=== PATIENT | female | born 1990 | race Caucasian/White ===

== ENCOUNTER 2016-04-02 00:30 | Outpatient (CLI) | payer OTHER ==
[2016-04-02 01:00] VITALS: BMI 26.2
== END 2016-04-02 01:25 | disposition home or self-care (01) ==
LOC: FBCOUT 00:30 → FBC 00:30 → FBCOUT 01:25
PROVIDERS: ATTEND Advanced Practice Midwife
DX: O47.9 False labor, unspecified (principal); Z3A.00 Weeks of gestation of pregnancy not specified
CPT/HCPCS: 59025; G0463 ×2

== ENCOUNTER 2016-04-09 09:53 | Inpatient (IN) | payer OTHER ==
[2016-04-09 10:21] VITALS: BMI 24.7
[2016-04-09] MEDS ORDERED: OXYTOCIN IN LR 500 ML IV ONE (11:54)
[2016-04-09] MEDS ORDERED: LIDOCAINE 1% (PRES FREE) 30 ML VIAL ONE (12:31)
[2016-04-09] MEDS ORDERED: OXYTOCIN 10 UNITS/ML VIAL ONE (12:31)
[2016-04-09] MEDS ORDERED: MINERAL OIL 25 ML BOT ONE (12:31)
[2016-04-09] MEDS ORDERED: OXYTOCIN IN LR 0 ML IV ONE (12:32)
[2016-04-09] MEDS ORDERED: LIDOCAINE Viscous 2% 15 ML UDCUP ONE (12:32)
[2016-04-09] MEDS ORDERED: LACTATED RINGERS 1,000 ML ONE (12:32)
[2016-04-09] MEDS ORDERED: IV START KIT ONE (12:32)
[2016-04-09] MEDS ORDERED: PUMP TUBING ONE (12:32)
[2016-04-09 13:12] LABS: HEMATOCRIT 38.3 % (37.0-47.0); HEMOGLOBIN 13.1 gm/l (12.0-16.0); MEAN CELL VOLUME 86.8 fl (81.0-99.0); MEAN CORPUSCULAR HEMOGLOBIN 29.7 pg (27.0-31.0); MEAN CORPUSCULAR HGB CONC 34.2 g/dl (33.0-37.0); RED CELL DISTRIBUTION WIDTH 13.9 % (11.5-14.5)
[2016-04-09] MEDS: MISOPROSTOL 25 MCG TABLET SL SCH ×3 (13:16→22:16)
--- NOTE | 2016-04-09 14:37 | PCMAN ---
OB Admission Note - History : 4 Term: 1 : 0 Abortions (S&E): 2 Livin EDC:: 04/11/16 Gestational Age (weeks): 39 Days (#/7): 5 Admit Cervical Dilation:: 2 Admit Cervical Effacement (%):: 50 Admit Station:: -1 Admit Presentaton:: vertex Membrane Status: Ruptured Rupture (Date): 04/09/16 Rupture (Time): 04:00 Membranes Comment:: clear fluid Contractions: No Heart Rate:: 130 (moderate variability/accels present/decels absent) Status:: FHR Cat 1 EFW:: 7.5-8# Summary of Course:: Onset of care at 7 weeks from [facility] in [place] x 5 visits. NNAMDI based on 7 week U/ S. Normal Anatomy U/S. complicated by CT infection in first trimester ; treated with negative YESICA in the third trimester. Called to report gush of clear fluid at 0400. Planned expectant management of labor x 12 hours. Came to [facility] at 1000 due to lack of movement. Reactive NST upon admission. - Review of Systems Mild RAMOS. No visual disturbances, epigastric pain, nausea or swelling. - Physical Exam General: Afebrile, No Acute Distress Psych/Mental Status: Mood/Affect Appropriate, Judgment/Insight Intact, Bonding Well Neurological: Grossly Intact, Alert, Oriented x 4 Lungs: Clear to Auscultation Bilaterally Cardiovascular: Regular Rate and Rhythm Genitourinary: Normal Female Genitalia, No Edema Extremities: Full ROM, No Edema Skin: Normal Color, Warm, Dry - Problems (1) SROM (spontaneous rupture of membranes) Status: Acute Assessment/Plan: Assessment: 25 year old at 39w5d PROM; not in labor FHR Cat 1 Bishops score 5 GBS neg Plan: Discussed expectant management versus cervical ripening. Patient would like to proceed with cervical ripening. Will start with 25 mcg misoprostol SL. Patient desires epidural anesthesia once in active labor.
[2016-04-09] MEDS: ACETAMINOPHEN 325 MG TABLET PO PRN ×2 (14:47→20:28)
[2016-04-09] MEDS ORDERED: ONDANSETRON 4 MG/2ML 2 ML VIAL IV ONE (20:16)
[2016-04-09] MEDS ORDERED: BUTORPHANOL TARTRATE 1 MG/ML VIAL IV ONE (20:57)
[2016-04-09] MEDS ORDERED: FENTANYL/ROPIVACAINE EPIDURAL 250 ML EP ONE (22:12)
[2016-04-09] MEDS ORDERED: EPIDURAL PUMP SET ONE ×2 (22:12→23:06)
[2016-04-09] MEDS: LACTATED RINGERS 1,000 ML IV SCH ×2 (22:15→23:10)
[2016-04-09] MEDS ORDERED: BUPIVACAINE 0.25% (PRES FREE) 30 ML VIAL ONE (22:44)
[2016-04-09] MEDS ORDERED: EPIDURAL PROCEDURE TRAY ONE (22:44)
--- NOTE | 2016-04-09 23:36 | PDOC36 ---
Provider Note Subject: Labor progress note S: Carol Ann has been working hard through her contractions, which she reports feeling in her back, front and down her legs. She tried laboring in the tub for a while, which offered mild pain relief. She got relief for 1hr with IV stadol, but reports that the pain has increased and is now requesting an epidural for pain management. O: SVE: 2cm/70%/-2, posterior (at 2000). ROT per off-going CNM. Fetus: Baseline 110, moderate variability, accels present, decels absent Ctx: q2-4 minutes, palpate moderate VS: 122/91 BP (taken during ctx), 35.9C temp, 92 HR A: 25 year old at 39w5d Fetus Category 1 PROM x19.5hrs-afebrile, vital signs stable, fluid clear and non-odorous Early labor-adequate contraction pattern currently following 2 doses of miso for cervical ripening GBS neg P: Discussed alternatives to getting an early epidural, as well as risk that labor could slow down. Pt reports inability to cope with contractions and desires epidural. Epidural initiated. Fluid bolus given. [employer] notified. cEFM per protocol Monitor contraction pattern and consider augmentation PRN if contractions space Once epidural is effective, frequent position changes to encourage rotation and labor progress Encourage rest/sleep Minimize cervical exams Reassess in 2-3hrs or PRN.
[2016-04-10] MEDS ORDERED: ACETAMINOPHEN 325 MG TABLET PO PRN (00:58)
[2016-04-10] MEDS ORDERED: DOCUSATE SODIUM 100 MG CAPSULE PO PRN (00:58)
[2016-04-10] MEDS ORDERED: CALCIUM CARBONATE 500 MG TAB.CHEW PO PRN (00:58)
[2016-04-10] MEDS ORDERED: BENZOCAINE/MENTHOL 60 APPLIC/BOT TP PRN (00:58)
[2016-04-10] MEDS ORDERED: LANOLIN 50 APPLIC/7G TUBE TP PRN (00:58)
--- NOTE | 2016-04-10 01:08 | PCMDEL ---
Delivery Note - Labor 1st stage (hr/min):: 1h54m 2nd stage (hr/min):: 34m 3rd stage (hr/min):: 8m Total (hr/min):: 2h36m Pushed (hr/min):: 20m - Delivery Delivery (Date): 04/10/16 Delivery (Time): 00:28 Gender: Male Presentation: Cephalic Position: OA Umbilical Cord: 3 Vessel Delayed Cord Clamping:: > 3 min 1 Minute Total: 9 5 Minute Total: 9 Placenta:: Shultze, intact EBL:: 100 Perineum:: intact, bilateral labial abrasions (superficial and hemostatic-not repaired) Anesthesia/Meds:: IV stadol, epidural Length ROM:: 20h30m Comments:: Pt achieved an of a viable male infant delivered over an intact perineum. FHTs Category 2 throughout 2nd stage due to occasional decelerations, but always with good recovery. Baby was passed to mother and placed on maternal abdomen. Delayed cord clamping x5 minutes, cut by FOB. Placenta delivered Shultze and intact, multiple small calcifications noted throughout. Fundus firm immediately at umbilicus. Vagina and perineum inspected and bilateral superficial labial abrasions were noted to be hemostatic, so they were not repaired. Otherwise intact. Fundus checked again and 1 moderate-sized clot expressed along with small amount of urine. Fundus firm at 1FB below umbilicus. [id number]. Baby to breast within 30 minutes. Mom and baby [id number] and bonding well.
[2016-04-10] MEDS ORDERED: NALOXONE HCL 0.4 MG/ML VIAL IV PRN (01:56)
[2016-04-10] MEDS ORDERED: EPHEDRINE SULFATE 50 MG/ML 1ML VIAL IV PRN (01:56)
[2016-04-10] MEDS ORDERED: SODIUM CHLORIDE 0.9% 500 ML IV PRN (01:56)
[2016-04-10] MEDS ORDERED: LACTATED RINGERS 500 ML IV PRN (01:56)
[2016-04-10] MEDS ORDERED: NALBUPHINE HCL 20 MG/ML AMP IV PRN (01:56)
[2016-04-10] MEDS ORDERED: DIPHENHYDRAMINE HCL 50 MG/1 ML VIAL IV PRN (01:56)
[2016-04-10] MEDS ORDERED: METOCLOPRAMIDE HCL 5 MG/ML 2ML VIAL IV PRN (01:56)
[2016-04-10] MEDS ORDERED: ONDANSETRON 4 MG/2ML 2 ML VIAL IV PRN (01:56)
[2016-04-10] MEDS: FENTANYL/ROPIVACAINE EPIDURAL 250 ML EP SCH ×2 (02:00→02:06)
[2016-04-10] MEDS: IBUPROFEN 800 MG TABLET PO SCH ×4 (02:40→23:21)
[2016-04-10] MEDS: LACTATED RINGERS 1,000 ML IV SCH ×2 (03:58→10:28)
[2016-04-10] MEDS: HYDROCODONE/ACETAMINOPHEN 5/325MG TABLET PO PRN ×2 (09:49→21:32)
[2016-04-10] MEDS: MISOPROSTOL 25 MCG TABLET SL SCH ×2 (10:29→10:30)
[2016-04-11] MEDS: IBUPROFEN 800 MG TABLET PO SCH (05:33)
[2016-04-11 06:54] LABS: HEMATOCRIT 40.8 % (37.0-47.0); HEMOGLOBIN 13.4 gm/l (12.0-16.0)
[2016-04-11 07:56] VITALS: BP 102/62
--- NOTE | 2016-04-11 10:02 | PDOC39B ---
Hospital Course: ADMIT DATE: 04/09/16 DISCHARGE DATE: 04/11/16 ADMISSION DIAGNOSES: Active Labor PROCEDURES: HISTORY OF PRESENT ILLNESS: 25 year old G4 T1 L1 at 39 weeks 6 days presenting with active labor. HOSPITAL COURSE: The patient is ready to go home. Breast feeding is going well. She has a f/u next Saturday with . Will see the NB provider on Saturday. She also wants a breast pump order to go home with. Eating, drinking and ambulating. Mild cramping noted and taking Ibuprofen. Declines an RX for this. By day of discharge the patient is stable, well and ready to go home. - Physical Exam Vital Signs: Temp Pulse Resp BP Pulse Ox 97.6 F 76 16 102/62 04/11/16 07:52 04/11/16 07:52 04/11/16 07:52 04/11/16 07:52 General: Afebrile Psych/Mental Status: Mood/Affect Appropriate Neurological: Grossly Intact HEENT: Atraumatic Lungs: Clear to Auscultation Bilaterally Cardiovascular: Regular Rate and Rhythm Breast: Soft, Skin intact Fundus: Firm Genitourinary: Normal Female Genitalia Lochia: Light Rectal Exam: Deferred Extremities: Full ROM Skin: Normal Color, Warm, Dry, Intact - Discharge Diagnosis (1) normal course Status: Acute Assessment/Plan: A/ Day 1 s/p vaginal Breast feeding Normal PP course P/ D/C Home with baby F/U in 2 weeks with CNM F/U Saturday with NB provider - Discharge Plan Condition: Good Disposition: Home Additional Instructions: Midwifery 'After the ' handout given to patient. Follow-Up: Bridget Coughlin CNM [Certified Nurse [employer]] - In 2 weeks
== END 2016-04-11 11:15 | disposition home or self-care (01) | DRG 775 ==
LOC: FBCOUT 09:53 → FBC 09:56 → FBCOUT 11:51 → FBC 11:52
PROVIDERS: ADMIT Licensed Practical Nurse; ATTEND Licensed Practical Nurse
PROC: 3E0P7GC Introduction of Other Therapeutic Substance into Female Reproductive, Via Natural or Artificial Opening (ICD-10-PCS; 2016-04-09)
PROC: 10E0XZZ Delivery of Products of Conception, External Approach (ICD-10-PCS; principal; 2016-04-11)
DX: O70.0 First degree perineal laceration during delivery (principal); Z3A.39 39 weeks gestation of pregnancy; Z37.0 Single live birth; O76 Abnormality in fetal heart rate and rhythm complicating labor and delivery

== ENCOUNTER 2016-04-16 10:44 | Outpatient (CLI) | payer OTHER | END 2016-04-16 10:45 | disposition home or self-care (01) | LOC: BABIESSH 10:44 | PROVIDERS: ATTEND Advanced Practice Midwife | DX: Z39.1 Encounter for care and examination of lactating mother (principal) ==

== ENCOUNTER 2016-05-14 21:49 | Emergency (ER) | payer OTHER ==
[2016-05-14 23:15] LABS: HCG,QUALITATIVE URINE NEGATIVE
[2016-05-14 23:16] LABS: SPECIFIC GRAVITY 1.025 (1.001-1.030); URINE BILIRUBIN NEGATIVE (NEGATIVE); URINE BLOOD NEGATIVE (NEGATIVE); URINE GLUCOSE (UA) NEGATIVE (NEGATIVE); URINE LEUKOCYTE ESTERASE NEGATIVE (NEGATIVE); URINE NITRITE NEGATIVE (NEGATIVE); URINE PROTEIN NEGATIVE (NEGATIVE); URINE UROBILINOGEN NORMAL (0-1 mg/dl)
[2016-05-14 23:18] LABS: URINE APPEARANCE CLEAR; URINE COLOR YELLOW
[2016-05-15 00:01] LABS: ABSOLUTE NEUTROPHIL COUNT 5.2 K/mm3 (1.8-7.7); BASO % 0.2 % (0.2-1.0); EOS # 0.4 (0.0-0.5); EOS % 3.9 % (0.9-2.9); HEMATOCRIT 39.7 % (37.0-47.0); HEMOGLOBIN 13.1 gm/l (12.0-16.0); IMM NEUT% 0.2 % (0-1); LYMPH # 2.8 (1.0-4.8); LYMPH % 31.4 % (15-45); MEAN CELL VOLUME 87.4 fl (81.0-99.0); MEAN CORPUSCULAR HEMOGLOBIN 28.9 pg (27.0-31.0); MONO # 0.6 (0.0-0.8); MONO % 6.9 % (4-12); NEUT % 57.4 % (43-75); PLATELET COUNT 147 K/mm3 (130-400); RED CELL DISTRIBUTION WIDTH 12.8 % (11.5-14.5)
[2016-05-15 00:14] LABS: ALB/GLOB RATIO 1.5 (>1.0); ALBUMIN 3.9 gm/dL (3.5-5.7); CALCIUM 9.4 mg/dL (8.6-10.3)
--- NOTE | 2016-05-15 08:18 | US ---
PELVIC ULTRASOUND HISTORY: Suprapubic cramping, . Transabdominal and transvaginal pelvic sonography performed. TRANSABDOMINAL IMAGING UTERINE DIMENSIONS: 10.6 x 7.1 x 5.2 cm. BLADDER: No abnormal filling defect. TRANSVAGINAL IMAGING: ENDOMETRIAL THICKNESS: 5 mm. Minimal endometrial cavity fluid without focal lesion or hypervascularity. FOCAL UTERINE LESIONS: None. RIGHT OVARY: 3.9 x 3.3 x 1.8 cm for a volume of 12 cc. LEFT OVARY: 3.4 x 2.9 x 2.1 cm for volume of 10.3 cc. OVARIAN BLOOD FLOW: Documented bilaterally. DOMINANT ADNEXAL LESIONS: No dominant lesion noted. FREE FLUID: Minor pelvic free fluid is noted.. IMPRESSION: No endometrial thickening or dominant adnexal lesion. Minimal free fluid. Minimal endometrial fluid without thickening or obvious endometrial lesion. Preliminary report relayed to the Emergency Medicine medical service by Dr. Pradhan on 05/15/2016 at 0223 hours.
[2016-05-16 14:53] LABS: CHLAMYDIA BD Negative (Negative); N.GONORRHOEAE BD Negative (Negative); SOURCE Urine (())
== END 2016-05-15 02:51 | disposition home or self-care (01) ==
LOC: ED 21:49
DX: R10.32 Left lower quadrant pain (principal); R10.31 Right lower quadrant pain; G43.909 Migraine, unspecified, not intractable, without status migrainosus

== ENCOUNTER 2016-05-28 10:48 | Outpatient (CLI) | payer OTHER | END 2016-05-28 10:49 | disposition home or self-care (01) | LOC: BABIESSH 10:48 | PROVIDERS: ATTEND Advanced Practice Midwife | DX: Z39.1 Encounter for care and examination of lactating mother (principal) ==